=== PATIENT | male | born 1965 | race Caucasian/White ===

== ENCOUNTER 2020-11-28 18:37 | Emergency (ER) | payer BC ==
[~2020-11-28] VITALS: Ht 175.3 cm; Wt 86.4 kg
[2020-11-28 18:41] VITALS: Ht 175.3 cm; Wt 86.4 kg
[2020-11-28] MEDS ORDERED: LISINOPRIL10 MG PO (18:42)
[2020-11-28] MEDS ORDERED: METHOCARBAMOL500 MG PO (20:07)
[2020-11-28 20:15] VITALS: BP 168/89
== END 2020-11-28 20:16 | disposition home or self-care (01) ==
LOC: D.ER 18:37
DX: S20.212A Contusion of left front wall of thorax, initial encounter (principal); W10.9XXA Fall (on) (from) unspecified stairs and steps, initial encounter; Y93.9 Activity, unspecified; Y92.9 Unspecified place or not applicable